=== PATIENT | female | born 1945 | race Caucasian/White ===

== ENCOUNTER → 2018-05-08 14:27 | Outpatient (CLI) | payer MEDICARE, BC | END | disposition home or self-care (01) | LOC: D.US 14:27 | DX: I12.9 Hypertensive chronic kidney disease with stage 1 through stage 4 chronic kidney disease, or unspecified chronic kidney disease (principal); N18.3 Chronic kidney disease, stage 3 (moderate); M10.9 Gout, unspecified; Z68.42 Body mass index [BMI] 45.0-49.9, adult ==